=== PATIENT | male | born 1980 | race Caucasian/White ===

== ENCOUNTER 2022-05-04 19:38 | Emergency (ER) | payer BC, SELFPAY ==
[2022-05-04 19:52] VITALS: BP 134/104; PULSE 123; RESP 22; TEMP 36.4; O2SAT 94
--- NOTE | 2022-05-04 19:52 | ED.NAVMDI ---
HPI - Nausea/Vomiting/Diarrhea General Time Seen by Provider: 19:52 Date Seen: 05/04/22 Chief complaint: Nausea/Vomiting Stated complaint: Vomiting, Diahrea Time Seen by Provider: 05/04/22 19:52 Source: patient and RN notes reviewed Mode of arrival: ambulatory Limitations: no limitations History of Present Illness HPI Narrative: Jaspreet is a very pleasant 41-year-old male with a history of chronic back pain who comes to the emergency room for evaluation regarding persistent nausea vomiting and diarrhea. Patient notes similar symptoms in his youngest child last week on May 01 and yesterday both his and another child were sick. Today he started experiencing vomiting and diarrhea at approximately 0700 hours. In spite of using Pepto-Bismol it has been persistent throughout the day. He notes no fever but does have pain in his hips and his low back which he describes as aching. He denies abdominal pain at this time Associated nausea: Yes Related Data Allergies Allergy/AdvReac Type Severity Reaction Status Date / Time No Known Drug Allergies Allergy Verified 05/04/22 19:50 Review of Systems Status of ROS: Reports: 10 or more systems reviewed and unremarkable except as noted in History and below Const: Reports: fatigue; Denies: fever or chills Eyes: Denies: change in vision ENMT: Denies: throat pain, difficulty swallowing or hoarseness Cardio: Denies: chest pain, edema, swelling of feet/ankles, lightheadedness or shortness of breath with exertion Resp: Denies: shortness of breath or cough GI: Reports: nausea, vomiting and diarrhea; Denies: abdominal pain, difficulty swallowing or blood in stool : Denies: painful urination Musculo: Reports: back pain; Denies: extremity pain or extremity swelling Neuro: Reports: headache; Denies: numbness in extremities or weakness in extremities Endo: Reports: fatigue Exam Narrative: Exam Narrative: Jaspreet is alert and oriented. He is nontoxic in appearance but seems very shaky and anxious. Line external ears eyes nose clear. Heart with a regular rate and rhythm and lungs are clear to auscultation bilaterally. Abdomen is soft nontender. Moving all extremities. Neck shows a well-healed scar to the left of midline. Likely history of cervical spine surgery I am guessing. No lymphadenopathy. Const: Vital Signs, click to edit/add: Vital Signs - 24 hr 05/04/22 19:52 Temperature 97.5 F L Pulse Rate [Right Pulse Oximeter] 123 H Respiratory Rate 22 Blood Pressure [Le ft Upper Arm] 134/104 H Pulse Oximetry 94 Oxygen Delivery Me thod Room Air Documenting provider has reviewed patient's vital signs: yes Course Course Hospital Course: Patient noted to have family with similar symptoms over the past few days. This is most likely a viral gastroenteritis. No abdominal pain to suggest underlying colitis, diverticulitis, etc.. Will swab for COVID as this may be atypical presentation. IV will be placed in 2 L of normal saline as well as Zofran 4 mg IV is given. Toradol 15 mg IV for the discomfort at this time. Labs to include CBC, comprehensive, CRP. Reevaluation(s) Reevaluation #1: Patient noted to be better after IV fluids as well as Zofran. Will food and fluid challenge him at this point. Vital Signs Vital signs: Initial Vital Signs Temperature 97.5 F L 05/04/22 19:52 Temperature Source Temporal Artery Scan 05/04/22 19:52 Pulse Rate 123 H 05/04/22 19:52 Pulse Rhythm 05/04/22 19:52 Respiratory Rate 22 05/04/22 19:52 Blood Pressure 134/104 H 05/04/22 19:52 Blood Pressure Mean 114 05/04/22 19:52 Blood Pressure Position Semi-Fowlers 05/04/22 19:52 Pulse Oximetry 94 05/04/22 19:52 Oxygen Delivery Method 05/04/22 19:52 Vital Signs Temperature 97.5 F L 05/04/22 19:52 Pulse Rate 123 H 05/04/22 19:52 Respiratory Rate 22 05/04/22 19:52 Blood Pressure 134/104 H 05/04/22 19:52 Pulse Oximetry 94 05/04/22 19:52 Oxygen Delivery Method 05/04/22 19:52 Temperature 97.5 F L 05/04/22 19:52 Pulse Rate 123 H 05/04/22 19:52 Respiratory Rate 22 05/04/22 19:52 Blood Pressure 134/104 H 05/04/22 19:52 Pulse Oximetry 94 05/04/22 19:52 Oxygen Delivery Method 05/04/22 19:52 MDM - Nausea/Vomiting/Diarrhea MDM Narrative Medical decision making narrative: 1. Nausea vomiting and diarrhea-most likely viral in origin is multiple family members have had this prior to Jaspreet. Jaspreet received 2 L normal saline as well as Zofran 4 mg IV with improvement of symptoms. Unfortunately I think that although we have controlled the vomiting he will likely have continued loose stools over the next 48-72 hours. I have asked him not to use Imodium. He should try to stay well hydrated with pushing fluids. Will send home Zofran 4 mg ODT to be used Q 6-8 hours p.r.n.. This will be via [place]. Good hand washing to present (bread of this illness. 2. Disposition-home at this time. Return for worsening symptoms and as needed. Lab Data Attestation: I reviewed the patient's lab results. Labs: Lab Results 05/04/22 05/04/22 05/04/22 Range/Units 20:05 20:31 20:31 WBC 17.03 H (4.50-11.00) K/uL RBC 6.06 H (4.30-5.90) m/uL Hgb 18.0 H (13.5-17.5) gm/dL Hct 51.5 (37.0-53.0) % MCV 85 (80-100) fL MCH 30 (26-34) pg MCHC 35 (32-36) gm/dL RDW Coeff of [place] 12.3 (11.5-15.5) % Plt Count 294 (140-440) K/uL Neut % (Auto) 91.9 H (42.0-72.0) % Lymph % (Auto) 3.1 L (20-44) % [place] % (Auto) 4.2 (0.0-11.0) % Eos % (Auto) 0.4 (0.0-7.0) % Baso % (Auto) 0.1 (0.0-3.0) % Neut # (Auto) 15.70 H (1.7-7.0) K/uL Lymph # (Auto) 0.50 L (0.90-2.90) K/uL [place] # (Auto) 0.70 (0.00-0.90) K/UL Eos # (Auto) 0.10 (0.00-0.50) K/uL Baso # (Auto) 0.00 (0.00-0.30) K/uL Sodium 135 (135-149) mmol/L Potassium 3.8 (3.6-5.1) mmol/L Chloride 104 (96-114) mmol/L Carbon Dioxide 20 (20-32) mmol/L BUN 20 (5-24) mg/dL Creatinine 1.0 (0.5-1.5) mg/dL Estimated GFR 98 ml/min Glucose 148 H (60-115) mg/dL Calcium 9.4 (8.4-10.6) mg/dL Total Bilirubin 0.9 (0.1-1.5) mg/dL AST 25 (12-35) U/L ALT 38 (4-50) U/L Alkaline Phosphatase 63 (40-150) U/L C-Reactive Protein 2.8 H (0.5-1.0) mg/dL Total Protein 8.1 (6.0-8.3) g/dL Albumin 4.7 (3.3-5.0) g/dL SARS-CoV-2 (PCR) Negative SARS-CoV-2 (Negative) Influenza Type A (PCR) Negative PCR FLU A (Negative) Influenza Type B (PCR) Negative PCR FLU B (Negative) RSV (PCR) Negative PCR RSV (Negative) Discharge Plan Discharge Clinical Impression: Nausea vomiting and diarrhea Patient Disposition: Home, Self-Care Condition: Improved Additional Instructions: Zofran may be used as needed for nausea. Prescription for instant meds. Push fluids as much as possible. Suggest bland and not acidic foods. For example avoid orange juice, etc.. Vomiting should sees but she may have loose stools over the next 48-72 hours. Return to the emergency room as needed. Good hand washing is your likely contagious. Stand Alone Forms: MyHealth Info Instructions
[2022-05-04] MEDS: 0.9 % SODIUM CHLORIDE 1000 ml 1,000 ML IV (20:33)
[2022-05-04] MEDS: KETOROLAC 15 MG/ML inj IVP (20:33)
[2022-05-04] MEDS: ONDANSETRON 2 MG/ML inj 4 MG IVP (20:33)
[2022-05-04 20:52] LABS: PCR FLU A Negative PCR FLU A (Negative); PCR FLU B Negative PCR FLU B (Negative); PCR RSV Negative PCR RSV (Negative)
[2022-05-04 20:54] LABS: SARS PCR* Negative SARS-CoV-2 (Negative)
[2022-05-04 21:00] LABS: Basophils Percent Auto 0.1 % (0.0-3.0); Eosinophils Percent Auto 0.4 % (0.0-7.0); Hematocrit 51.5 % (37.0-53.0); Immature Granulocytes Pct Auto 0.3 %; Lymphocytes Percent Auto 3.1 % (20-44); Mean Corpuscular HGB Conc 35 gm/dL (32-36); Mean Corpuscular Hemoglobin 30 pg (26-34); Mean Corpuscular Volume 85 fL (80-100); Monocytes Percent Auto 4.2 % (0.0-11.0); Neutrophils Percent Auto 91.9 % (42.0-72.0); Platelet Count* 294 K/uL (140-440); RDW Coefficient of Variation % 12.3 % (11.5-15.5); Red Blood Count 6.06 m/uL (4.30-5.90); White Blood Count* 17.03 K/uL (4.50-11.00)
[2022-05-04 21:02] LABS: Slide Review Reflex No
[2022-05-04 21:25] LABS: Albumin* 4.7 g/dL (3.3-5.0); Chloride* 104 mmol/L (96-114); Sodium* 135 mmol/L (135-149)
[2022-05-04 21:26] LABS: Potassium* 3.8 mmol/L (3.6-5.1)
[2022-05-04 21:28] LABS: Bilirubin Total* 0.9 mg/dL (0.1-1.5); Estimated Glomerular Filt Rate 98 ml/min
[2022-05-04 21:29] LABS: Alanine Aminotransferase* 38 U/L (4-50); Alkaline Phosphatase* 63 U/L (40-150); Aspartate Amino Transferase* 25 U/L (12-35); Blood Urea Nitrogen* 20 mg/dL (5-24); Calcium* 9.4 mg/dL (8.4-10.6); Carbon Dioxide* 20 mmol/L (20-32); Glucose* 148 mg/dL (60-115); Total Protein* 8.1 g/dL (6.0-8.3)
[2022-05-04 21:32] LABS: C Reactive Protein* 2.8 mg/dL (0.5-1.0)
== END 2022-05-04 22:18 | disposition home or self-care (01) ==
PROVIDERS: Emergency Provider Family Medicine
DX: R11.2 Nausea with vomiting, unspecified (principal); R19.7 Diarrhea, unspecified
CPT/HCPCS: 36415; 80053; 85025; 86140; 87502; 87634; 87635; 96361; 96374; 96375; 99283; 99284; J1885; J2405; J7030